=== PATIENT | male | born 1945 | race Caucasian/White ===

== ENCOUNTER 2019-11-04 11:09 | Day surgery (SDC) | payer OTHER ==
--- NOTE | 2019-11-03 09:13 | H ---
[facility] [place] [address] HISTORY AND PHYSICAL Name: KUNAL PARISI Room #: PRE [facility] M..#: [id number] Admission: Attend Phys: Sixto Gottlieb MD Discharge: Date of : 49 Report #: [id number] THIS REPORT FOR: //name// CC: Micheal Gottlieb DATE OF SERVICE: 11/04/2019 PATIENT OF: Dr. Sixto Gottlieb and Dr. Micheal Urena. CHIEF COMPLAINT: "Lump in my groin." HISTORY OF PRESENT ILLNESS: The patient is a 74-year-old white male, who for 20 years, has had a bulge in the right groin. He states it does not cause any significant discomfort or pain. He denies changes in bowel or bladder habits. His last colonoscopy was 10 years ago and was normal. He states over the last 1 or 2 years, this right groin bulge has been getting much larger. He saw Dr. Urena who recommended surgical consultation. PAST MEDICAL HISTORY: Hypercholesterolemia. PAST SURGICAL HISTORY: Tonsillectomy in 1957, knee surgery in 2007. MEDICATIONS: Pravastatin, tamsulosin. ALLERGIES: SULFA. FAMILY HISTORY: Noncontributory. SOCIAL HISTORY: , does not smoke or drink alcohol. REVIEW OF SYSTEMS: Pertinent positives as above. Full review of systems otherwise negative. PHYSICAL EXAMINATION: GENERAL: Well-developed, well-nourished, white male in no acute distress. VITAL SIGNS: Stable. He is afebrile. Height is 70 inches, weighs 154 pounds, BMI of 22. HEENT: Unremarkable. LUNGS: Clear to auscultation bilaterally, no excursion. CARDIOVASCULAR: Regular rate and rhythm. No murmurs, S3, S4. No PMI. ABDOMEN: Soft, flat, and nontender. No palpable masses, no organomegaly, no hernias. GENITOURINARY: Normal scrotum, phallus, and testes. Some moderate sized right inguinal hernia with a fairly significant right cord lipoma. EXTREMITIES: No clubbing, cyanosis, or edema. [facility] [place] [address] HISTORY AND PHYSICAL Name: KUNAL PARISI Room #: [facility]..#: [id number] Admission: Attend Phys: Sixto Gottlieb MD Discharge: Date of : 49 Report #: [id number] NEUROLOGIC: Intact with clear mental status. IMPRESSION: A 74-year-old white male with a right inguinal hernia and right cord lipoma. I fully discussed with the patient the diagnosis, prognosis, and treatment options. I have recommended a right inguinal hernia repair and excision of right cord lipoma. He states he understands and agrees to proposed surgery. PLAN: We will perform a right inguinal exploration, right inguinal hernia repair, and excision of right cord lipoma under local IV sedation as an outpatient at [facility]. The procedure and its risks, benefits, and possible complications were fully discussed with the patient. He states he understands and agrees to proposed surgery. <ELECTRONICALLY SIGNED> By: Sixto Gottlieb MD 11/03/19 0913 1107 [id number] Sixto Gottlieb MD /nt
[~2019-11-04] VITALS: Ht 177.8 cm; Wt 70.3 kg
--- NOTE | ~2019-11-04 | O ---
[facility] [place] [address] OPERATIVE REPORT Name: KUNAL PARISI Room #: 150-11 [facility]#: [id number] Admission: 11/04/19 Attend Phys: Sixto Gottlieb MD Discharge: Date of : 49 Report #: [id number] THIS REPORT FOR: //name// CC: Micheal Gottlieb DATE OF SERVICE: 11/04/2019 PATIENT OF: Dr. Sixto Gottlieb and Dr. Micheal Urena. PREOPERATIVE DIAGNOSIS: Right inguinal hernia with a right cord lipoma. POSTOPERATIVE DIAGNOSIS: Right femoral hernia. PROCEDURE: Right inguinal exploration with the right femoral hernia repair with the PerFix mesh plug. SURGEON: Sixto Gottlieb MD. ANESTHESIA: Local IV sedation. DESCRIPTION OF PROCEDURE: The patient was brought to the operating room and placed on operative table in the supine position. Sequential compression devices were in place for a DVT prophylaxis. There was no indication for preoperative antibiotics. The patient underwent the IV sedation. The right inguinal area was then prepped and draped in a sterile fashion. Skin and subcutaneous tissue were then infiltrated with 0.5% Marcaine and 1% Xylocaine in a 1:1 mixture. A right inguinal skin incision was then performed using #10 scalpel blade. Hemostasis was obtained using electrocautery. Dissection was carried down through the subcutaneous tissue and Joyce's fascia using the electrocautery. A large hernia sac was identified and dissected free and this was dissected down to the femoral canal. This represent a large incarcerated femoral hernia. The hernia sac was dissected free down to the neck at the femoral canal opening. I then dissected free the preperitoneal fat and identified a femoral hernia sac. This was then opened and a high ligation of the sac was then performed with a 2-0 Prolene suture. The hernia sac was sent as specimen to pathology. The stump was then reduced back into the preperitoneal space and a medium Bard PerFix plug mesh was then placed in the defect and secured into place with simple interrupted 2-0 Prolene sutures. I then performed an exploration of the inguinal canal by incising the external oblique fascia. The ilioinguinal nerve was identified, injected with local mixture, preserved, and dissected free. Cord was then elevated up and carefully examined. There was no evidence of any indirect inguinal hernia sac. The floor was inspected and found to be intact. I then returned the cord and ilioinguinal nerve then to the canal and the external oblique fascia was then closed using a [facility] [address] [place] [address] OPERATIVE REPORT Name: KUNAL PARISI Room #: 150-11 [facility]#: [id number] Admission: 11/04/19 Attend Phys: Sixto Gottlieb MD Discharge: Date of : 49 Report #: [id number] running 2-0 Vicryl suture. Joyce's fascia was then reapproximated using 3 simple interrupted 2-0 chromic sutures and the skin was then closed with a running 4-0 subcuticular Vicryl stitch. The wound was then dressed with Mastisol, 1/2-inch Steri-Strips cut into half, Telfa, 4 x 4 gauze, sponge, and tape. The patient was then taken to the recovery room awake, alert, and in good condition. The estimated blood loss was approximately 5 mL and the patient tolerated the procedure well. All sponge, lap, and instrument counts were correct x 2. By: [id number] Sixto Gottlieb MD /nt
[~2019-11-04 11:09] MED LIST: FLOMAX0.4 MG PO; MULTI VITAMIN1 EACH PO; PRAVACHOL20 MG PO
[2019-11-04 12:18] VITALS: BP 124/74
[2019-11-04] MEDS ORDERED: NORCO 10-325 T1 EACH PO (13:32)
[2019-11-04 14:53] VITALS: BP 124/74
--- NOTE | 2019-11-08 19:07 | PATH ---
[facility] [address] [place] [address] PATHOLOGY RPT PROCEDURE Name: KUNAL PARISI Room #: DEP [facility] M.R.#: [id number] Admission: 11/04/19 Date of : 49 Discharge: 11/04/19 Report #: [id number] Path Case #: [id number] [facility] Accession Number: [id number] . 01 Material submitted: . hernia - RIGHT INGUINAL HERNIA SAC. Modifiers: right, inguinal . 01 Clinical history: . Unilateral sonya hernia, without obstruction or gangrene, not specified is recurrent . 02 Diagnosis: Right inguinal hernia sac, repair: - Fibrovascular connective tissue associated with moderate chronic inflammation and congestion, consistent with hernia sac. 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 02 Electronically signed: . Shayla Beltran MD, Pathologist NPI- [id number] . 01 Gross description: . The specimen is received in formalin, labeled "Kunal Parisi, right inguinal hernia sac". Received is a segment of fibroadipose tissue with a slight of attached fibromembranous tissue measuring 9.3 x 4.9 x 1.5 cm in greatest dimensions. No distinct nodules or lesions are noted grossly. The specimen is submitted representatively in cassette A1. (CAA; 11/05/2019) QA/QA 11/05/2019 0939 Local . 02 Pathologist provided ICD-10: K44.9 . 02 CPT . 864233 Specimen Comment: A courtesy copy of this report has been sent to [phone] Specimen Comment: [phone] Specimen Comment: Report sent to / DR HAYNES Performed at: 01 [facility] [address] [id number] MD Jovan Castaneda MD Phone: [phone] Performed at: [address] [id number] [address] [address] PATHOLOGY RPT PROCEDURE Name: KUNAL PARISI Room #: DEP [facility] Janice#: [id number] Admission: 11/04/19 Date of : 49 Discharge: 11/04/19 Report #: [id number] Path Case #: [id number] MD Shayla Beltran MD Phone: [phone]
== END 2019-11-04 15:35 | disposition home or self-care (01) ==
LOC: OR 11:09 → TBA 11:10 → OR 13:42
DX: K41.30 Unilateral femoral hernia, with obstruction, without gangrene, not specified as recurrent (principal); E78.5 Hyperlipidemia, unspecified; N40.0 Benign prostatic hyperplasia without lower urinary tract symptoms; Z98.890 Other specified postprocedural states; Z79.899 Other long term (current) drug therapy; Z98.41 Cataract extraction status, right eye; Z98.42 Cataract extraction status, left eye; Z88.2 Allergy status to sulfonamides; Z79.891 Long term (current) use of opiate analgesic
CPT/HCPCS: 50010; 50101; 50386; 50417; 54117; 56524; 56526; 56528; 62110; 62850; 70005